=== PATIENT | male | born 1995 | race Asian ===

== ENCOUNTER 2016-12-16 07:07 | Emergency (ER) | payer OTHER ==
[~2016-12-16] VITALS: Ht 175.3 cm; Wt 66.0 kg
[2016-12-16 07:09] VITALS: TEMP 36.8; Ht 175.3 cm; Wt 66.0 kg
[2016-12-16] MEDS ORDERED: FAMOTIDINE 20MG/102 ML D5W IV STA (07:29)
[2016-12-16] MEDS ORDERED: SODIUM CHLORIDE 0.9% 1000ML 2,000 ML IV STA (07:29)
[2016-12-16] MEDS ORDERED: ONDANSETRON INJ 2 MG/ML 2 ML VIAL IV STA (07:29)
[2016-12-16 08:17] LABS: BASO % 0.1 %; BASO ABS # 0.02 K/uL (0-0.2); COMPLETE YES; HEMATOCRIT 43.9 % (42-52); IG% 0.2 %; LYMPH ABS # 1.37 K/uL (1.2-3.4); MEAN CELL VOLUME 87.6 fL (80-100); MEAN CORPUSCULAR HEMOGLOBIN 31.9 pg (25-34); MEAN CORPUSCULAR HGB CONC 36.4 g/dl (32-36); MONO % 3.9 %; NEUT % 85.8 %; PLATELET COUNT 282 K/uL (130-400); RED BLOOD COUNT 5.01 M/uL (4.7-6.1); WHITE BLOOD COUNT 13.75 K/uL (4.8-10.8)
[2016-12-16 08:31] LABS: BUN/CREATININE RATIO 19.5 (10-20); CALCIUM 9.6 mg/dl (8.5-10.1); CREATININE 0.92 mg/dl (0.60-1.40); POTASSIUM 3.4 mmol/L (3.5-5.1)
[2016-12-16 08:34] LABS: ALB/GLOB RATIO 1.2 (0.9-2)
[2016-12-16 08:53] VITALS: BP 112/79; PULSE 118; O2SAT 97
[2016-12-16] MEDS ORDERED: ONDANSETRON HOME PACK 4MG OD TAB PO ONE (09:30)
--- NOTE | 2016-12-16 14:22 | EMERGENCY ROOM VISIT NOTE ---
History Report prepared by Gennaro: Suzanne Acharya Under the Supervision of: Dr. John Morales M.D. First contact with patient: 07:25 Chief Complaint: VOMITING Stated Complaint: VOMITING Nursing Triage Summary: Patient arrived via EMS. EMS reports patient vomiting throughout the night and could not sleep due to hourly nausea and vomiting. Patient reports he was drinking last night "two or three beers". Patiet denies any other drug use. History of Present Illness The patient is a 21 year old male who presents to the Emergency Room via ALS with complaints of persistent vomiting starting a few hours [employer]. The patient states that last night he was out with friends and consumed a large amount of alcohol. He states that once returning to his dormitory he started experiencing several episodes of vomiting along with restlessness and shivering. He state that he believes that this is alcohol related but states he has not experienced this before causing him to come to the ED to be evaluated. The patient denies any other medical problems, medication use, trauma occurring last night or abdominal pain. The patient states that he does not have any friends that have been experiencing stomach issues and denies sharing any drinks with friends last night. Source of History: patient Onset: few hours [employer] Position: other (global) Timing: other (persistent) Associated Symptoms: No abdominal pain Note: Associated symptoms: restlessness, shivering. Patient denies any trauma. Review of Systems See HPI for pertinent positives & negatives. A total of 10 systems reviewed and were otherwise negative. Past Medical & Surgical Medical Problems: (1) No chronic problems Family History Patient reports no known family medical history. Social History Smoking Status: Never Smoker Marital Status: single Housing Status: lives with roommate Occupation Status: student Current/Historical Medications No Active Prescriptions or Reported Meds Allergies Coded Allergies: No Known Allergies (Unverified , 12/16/16) Physical Exam Vital Signs Date Time Temp Pulse Resp B/P Pulse Ox O2 Delivery O2 Flow Rate FiO2 12/16/16 08:53 118 18 112/79 97 Room Air 12/16/16 07:09 36.8 130 20 138/73 98 Room Air Physical Exam GENERAL: Patient is in no acute distress. HEENT: No acute trauma, normocephalic atraumatic, mucous membranes moist, no nasal congestion, no scleral icterus. NECK: No stridor, no adenopathy, no meningismus, trachea is midline. LUNGS: Clear to auscultation bilaterally, no wheeze, no rhonchi, breath sounds equal. HEART: Tachycardic with regular rhythm, no murmur. ABDOMEN: Soft, nontender, bowel sounds positive, no hernias, no peritonitis. EXTREMITIES: No cyanosis or edema, full range of motion of all the joints without pain or difficulty, no signs for acute trauma. NEUROLOGIC: Oriented x 3, no acute motor or sensory deficits, no focal weakness. SKIN: No rash, no jaundice, no diaphoresis. Medical Decision & Procedures Laboratory Results 12/16/16 07:50 Red Blood Count 5.01, Mean Corpuscular Volume 87.6, Mean Corpuscular Hemoglobin 31.9, Mean Corpuscular Hemoglobin Concent 36.4, Mean Platelet Volume 10.0, Neutrophils (%) (Auto) 85.8, Lymphocytes (%) (Auto) 10.0, Monocytes (%) (Auto) 3.9, Eosinophils (%) (Auto) 0.0, Basophils (%) (Auto) 0.1, Neutrophils # (Auto) 11.80, Lymphocytes # (Auto) 1.37, Monocytes # (Auto) 0.53, Eosinophils # (Auto) 0.00, Basophils # (Auto) 0.02 12/16/16 07:50 Test 12/16/16 07:50 White Blood Count 13.75 K/uL (4.8-10.8) Red Blood Count 5.01 M/uL (4.7-6.1) Hemoglobin 16.0 g/dL (14.0-18.0) Hematocrit 43.9 % (42-52) Mean Corpuscular Volume 87.6 fL (80-100) Mean Corpuscular Hemoglobin 31.9 pg (25-34) Mean Corpuscular Hemoglobin Concent 36.4 g/dl (32-36) Platelet Count 282 K/uL (130-400) Mean Platelet Volume 10.0 fL (7.4-10.4) Neutrophils (%) (Auto) 85.8 % Lymphocytes (%) (Auto) 10.0 % Monocytes (%) (Auto) 3.9 % Eosinophils (%) (Auto) 0.0 % Basophils (%) (Auto) 0.1 % Neutrophils # (Auto) 11.80 K/uL (1.4-6.5) Lymphocytes # (Auto) 1.37 K/uL (1.2-3.4) Monocytes # (Auto) 0.53 K/uL (0.11-0.59) Eosinophils # (Auto) 0.00 K/uL (0-0.5) Basophils # (Auto) 0.02 K/uL (0-0.2) RDW Standard Deviation 41.0 fL (36.4-46.3) RDW Coefficient of Variation 12.8 % (11.5-14.5) Immature Granulocyte % (Auto) 0.2 % Immature Granulocyte # (Auto) 0.03 K/uL (0.00-0.02) Anion Gap 14.0 mmol/L (3-11) Est Creatinine Clear Calc Drug Dose 119.6 ml/min Estimated GFR () 138.3 Estimated GFR (Non- 119.3 BUN/Creatinine Ratio 19.5 (10-20) Calcium Level 9.6 mg/dl (8.5-10.1) Total Bilirubin 0.5 mg/dl (0.2-1) Aspartate Amino Transf (AST/SGOT) 23 U/L (15-37) Alanine Aminotransferase (ALT/SGPT) 26 U/L (12-78) Alkaline Phosphatase 84 U/L (45-117) Total Protein 8.7 gm/dl (6.4-8.2) Albumin 4.8 gm/dl (3.4-5.0) Globulin 3.9 gm/dl (2.5-4.0) Albumin/Globulin Ratio 1.2 (0.9-2) Laboratory results reviewed by me. Medications Administered Medications (Trade) Dose Ordered Sig/Mili Route Start Time Stop Time Status Last Admin Dose Admin Ondansetron HCl (Zofran Inj) 4 mg NOW STAT IV 12/16/16 07:29 12/16/16 07:32 DC 12/16/16 07:43 4 MG Famotidine 20 mg 20 mg ONE STAT IV 12/16/16 07:29 12/16/16 07:32 DC 12/16/16 07:43 20 MG Sodium Chloride (Nss 1000ml) 2,000 ml @ 999 mls/hr Q2H1M STAT IV 12/16/16 07:29 12/16/16 09:29 DC 12/16/16 07:43 999 MLS/HR Ondansetron HCl (ZOFRAN ODT 4MG Home Pack) 1 homepack UD ONCE PO 12/16/16 09:30 12/16/16 09:31 DC 12/16/16 09:29 1 HOMEPACK ED Course 0728: The patient was evaluated in room B8. A complete history and physical exam was performed. 07: Ordered Sodium Chloride 2,000 ml @ 999 mls/hr IV, Famotidine 20 mg IV, Zofran Inj 4 mg IV. 09: Reevaluated the patient. Discussed results and discharge instructions: He verbalized understanding and agreement. The patient is ready for discharge. 929: Ordered Ondansetron HCl 1 homepack PO. Medical Decision The patient is a 21 year old male who presents to the ED with complaints of vomiting. Differential diagnoses considered include dehydration, electrolyte imbalance, food borne illness, alcohol induced vomiting. There is a mild leukocytosis which is likely consistent with his nausea and vomiting. No anemia. No significant electrolyte abnormality, kidney failure or hepatitis. On exam, the patient was not toxic. He was not febrile. The patient received IV Pepcid, IV Zofran and IV saline, he feels markedly better and is now tolerating Gatorade orally. The patient's nausea and vomiting is likely secondary to his alcohol use last evening. He looks well now and I do think can be discharged. He was given some Zofran to use, he will rest and stay hydrated, if worsening--he can return. Impression Primary Impression: Vomiting Additional Impressions: Dehydration Alcohol use Scribe Attestation The scribe's documentation has been prepared under my direction and personally reviewed by me in its entirety. I confirm that the note above accurately reflects all work, treatment, procedures, and medical decision making performed by me. Departure Information Dispostion Home / Self-Care Prescriptions No Active Prescriptions or Reported Meds Referrals No Doctor, Assigned (PCP) Forms HOME CARE DOCUMENTATION FORM, IMPORTANT VISIT INFORMATION Patient Instructions My [facility] Additional Instructions bland diet---crackers, soup, toast, gatorade tylenol for pain zofran 1 tab as needed every 6 hours for nausea no more alcohol today return if worsening Problem Qualifiers
== END 2016-12-16 09:31 | disposition home or self-care (01) ==
LOC: C.EDB 07:10
DX: R11.10 Vomiting, unspecified (principal); E86.0 Dehydration; Z72.89 Other problems related to lifestyle